=== PATIENT | male | born 1955 | race Caucasian/White ===

== ENCOUNTER 2018-03-06 09:07 | Emergency (ER) | payer SELFPAY ==
[2018-03-06] MEDS ORDERED: ONDANSETRON HCL IV 4 MG/2 ML VIAL IV ONE (09:16)
[2018-03-06] MEDS ORDERED: 0.9 % SODIUM CHLORIDE 1,000 ML BAG IV ONE (09:16)
--- NOTE | 2018-03-06 09:21 | Emergency Department Record ---
History of Present Illness - General Chief complaint: Extremity Problem Stated complaint: LEG WEAKNESS Time Seen by Provider: 03/06/18 09:15 Source: Patient, EMS - History of Present Illness Initial comments: The patient resides at [facility] since last winter sometime. He states and EMS verify that he has had weakness in his legs for about 3-7 days. He is not aware of his medical problems, but his med list includes lithium s well as numerous other medications for bipolar disorder, schizo-affective disorder, hypertension, type 2DM. He denies complaints of fevers, chills, cough, sore throat, back pain, flank pain, abdominal pain, nausea or vomiting. He states his legs are weak so that he needs help walking to and from his room. Staff at bedside report that he always has resting tremors. He states he had a CBC drawn in [place]. Staff member not aware of details, but will call facility to clarify. - Related Data Home Medications Medication Instructions Recorded Confirmed Last Taken Amlodipine Besylate [Norvasc] 5 mg PO DAILY 03/06/18 03/06/18 03/06/18 Aspirin 81 mg PO DAILY 03/06/18 03/06/18 03/06/18 Atorvastatin Calcium [Lipitor] 10 mg PO DAILY 03/06/18 03/06/18 03/05/18 Cholecalciferol (Vitamin D3) 2,000 unit PO DAILY 03/06/18 03/06/18 03/06/18 [Vitamin D3] Clozapine [Clozaril] 300 mg PO QHS 03/06/18 03/06/18 03/05/18 Gabapentin [Neurontin] 300 mg PO TID 03/06/18 03/06/18 03/05/18 Lactulose [Kristalose] 10 gm PO TID 03/06/18 03/06/18 03/06/18 Levothyroxine Sodium [Levoxyl] 100 mcg PO DAILY 03/06/18 03/06/18 03/06/18 [place] Carbonate [[place] 300 mg PO QHS 03/06/18 03/06/18 03/05/18 Carbonate ER] Lorazepam [Ativan] 1 mg PO TID 03/06/18 03/06/18 03/05/18 Melatonin 3 mg PO QHS 03/06/18 03/06/18 03/06/18 Multivitamin [Daily Multiple 1 tab PO DAILY 03/06/18 03/06/18 03/06/18 Vitamin] Ropinirole HCl [Requip] 0.5 mg PO 03/06/18 Unknown Valbenazine Tosylate [Ingrezza] 40 mg PO DAILY 03/06/18 03/06/18 03/05/18 Allergies Allergy/AdvReac Type Severity Reaction Status Date / Time No Known Drug Allergies Allergy Verified 03/06/18 09:13 Review of Systems Reviewed: No additional complaints except as noted below Constitutional: Reports: As per HPI. Denies: Chills, Fever, Malaise, Night sweats, Weakness, Weight change Eyes: Reports: As per HPI. Denies: Eye discharge, Eye pain, Photophobia, Vision change ENT: Reports: As per HPI. Denies: Congestion, Dental pain, Ear pain, Epistaxis , Hearing loss, Throat pain Respiratory: Reports: As per HPI. Denies: Cough, Dyspnea, Hemoptysis, Stridor, Wheezes Cardiovascular: Reports: As per HPI. Denies: Arrhythmia, Chest pain, Dyspnea on exertion, Edema, Murmurs, Orthopnea, Palpitations, Paroxysmal nocturnal dyspnea, Rheumatic Fever, Syncope Endocrine: Reports: As per HPI. Denies: Fatigue, Heat or cold intolerance, Polydipsia, Polyuria Gastrointestinal: Reports: As per HPI. Denies: Abdominal pain, Constipation, Diarrhea, Hematemesis, Hematochezia, Melena, Nausea, Vomiting Genitourinary: Reports: As per HPI. Denies: Dysuria, Frequency, Hematuria, Incontinence, Retention, Testicular pain, Testicular mass, Urgency Musculoskeletal: Reports: As per HPI. Denies: Arthralgia, Back pain, Gout, Joint swelling, Myalgia, Neck pain Skin: Reports: As per HPI. Denies: Bruising, Change in color, Change in hair/ nails, Lesions, Pruritus, Rash Neurological: Reports: As per HPI. Denies: Abnormal gait, Confusion, Headache, Numbness, Paresthesias, Seizure, Tingling, Tremors, Vertigo, Weakness Psychiatric: Reports: As per HPI. Denies: Anxiety, Auditory hallucinations, Depression, Homicidal thoughts, Suicidal thoughts, Visual hallucinations Hematological/Lymphatic: Reports: As per HPI. Denies: Anemia, Blood Clots, Easy bleeding, Easy bruising, Swollen glands Physical Exam - General General Appearance: Alert, Oriented x3, Cooperative, No acute distress, Other ( Patient is poorly dressed, has food particles on his chin and shirt, pants are half way own his buttocks, overall poor hygiene noted. Fine generalized tremor to all extremities, difficulty focusing on questions asked of him (staff reports this is baselilne for him).) - Head Head exam: Atraumatic, Normal inspection - Eye Eye exam: Normal appearance, PERRL Pupils: Normal accommodation - ENT ENT exam: Normal exam, Mucous membranes moist, Normal external ear exam, Normal orophraynx, TM's normal bilaterally Ear exam: Normal external inspection. negative: External canal tenderness Nasal Exam: Normal inspection. negative: Discharge, Sinus tenderness Mouth exam: Normal external inspection, Tongue normal Teeth exam: Normal inspection. negative: Dental caries Throat exam: Normal inspection. negative: Tonsillar erythema, Tonsillar exudate - Neck Neck exam: Normal inspection, Full ROM. negative: Lymphadenopathy, Meningismus , Tenderness - Respiratory Respiratory exam: Normal lung sounds bilaterally. negative: Respiratory distress - Cardiovascular Cardiovascular Exam: Regular rate, Normal rhythm, Normal heart sounds - GI/Abdominal GI/Abdominal exam: Soft, Normal bowel sounds. negative: Guarding, Rebound, Rigid, Tenderness - Rectal Rectal exam: Deferred - exam: Deferred - Extremities Extremities exam: Normal inspection, Full ROM, Normal capillary refill. negative: Calf tenderness, Pedal edema, Tenderness - Back Back exam: Reports: Normal inspection, Full ROM. Denies: CVA tenderness (R), CVA tenderness (L), Muscle spasm, Rash noted, Tenderness - Neurological Neurological exam: Alert, CN II-XII intact, Normal gait, Oriented X3, Reflexes normal, Other (fine tremor to all extremities (not new per staff member from home)). negative: Motor sensory deficit - Psychiatric Psychiatric exam: Normal affect, Normal mood - Skin Skin exam: Dry, Intact, Normal color, Warm. negative: Diaphoretic, Rash Course - Reevaluation(s) Reevaluation #1: 03/06/18 10:36 Patient is a difficulty blood draw. Unable to establish IV. Patient is not vomiting, will orally hydrate. Reevaluation #2: Patient drank 4 large glasses of water, & ate 2 pieces of peanut butter toast. He got up to ambulate in his room and felt good and back to normal. He has continuous fine tremors and tardative dyskinesia as a baseline. Will discharge back to his facility with caregiver. 03/06/18 11:03 Medical Decision Making - Management Options MDM Management: No Additional Work-up Planned - Data Complexity MDM Data: Labs Ordered and/or Reviewed, Decision to Obtain Old Record ( Discharge summary from 01-29 to 02-08-18 reviewed. He required 3 ECT therapies and several doses of Zyprexa with good response. ) - Lab Data Result diagrams: 03/06/18 09:55 03/06/18 09:55 Disposition Disposition: Discharge Clinical Impression: Dehydration Disposition: Home, Self-Care Condition: (2) Stable Instructions: Dehydration (ED) Additional Instructions: Increase fluid intake. Continue present medications. Follow up with PCP as needed through your Facility where you reside as before. Forms: Patient Portal Access Quality - Quality Measures Quality Measures: N/A - Blood Pressure Screening Does Patient Have Any of the Following: No Blood Pressure Classification: Pre-Hypertensive BP Reading Systolic Measurement: 145 Diastolic Measurement: 85 Screening for High Blood Pressure: < Pre-Hypertensive BP, F/U Documented > [ G8950] Pre-Hypertensive Follow-up Interventions: Follow-up with rescreen every year.
[2018-03-06 10:00] LABS: BASO % 0.5 % (0-6); EOS % 2.2 % (0-6); GRAN % 78.5 % (47-80); HEMATOCRIT 40.7 % (42.0-52.0); HEMOGLOBIN 12.9 gm/dl (14.0-18.0); MEAN CELL VOLUME 89.1 fl (81-97); MEAN CORPUSCULAR HEMOGLOBIN 28.2 pg (27-33); MEAN CORPUSCULAR HGB CONC 31.7 g/dl (32-36); MEAN PLATELET VOLUME 10.1 fl (7.4-10.4); MONO % 4.8 % (0-9); PLATELET COUNT 224 K/uL (130-400); RED BLOOD COUNT 4.57 M/uL (4.40-5.70); RED CELL DISTRIBUTION WIDTH 14.6 % (11.5-14.5); WHITE BLOOD COUNT W/O DIFF 9.3 K/uL (4.2-12.2)
[2018-03-06 10:07] LABS: BLOOD UREA NITROGEN 11 mg/dL (8-23); CREATININE 0.8 mg/dL (0.7-1.2); EST GLOMERULAR FILTRATION RATE > 60 mL/min; TOTAL PROTEIN 7.1 g/dL (6.6-8.7)
[2018-03-06 10:09] LABS: GLUCOSE,RANDOM 102 mg/dL (74-109)
[2018-03-06 10:12] LABS: ALB/GLOB RATIO 1.1 (1.1-1.8); ALBUMIN 3.7 g/dL (4.0-5.0); ALKALINE PHOSPHATASE 158 U/L (40-129); ALT/SGPT 15 U/L (<41); AST/SGOT 15 U/L (10.0-50.0)
[2018-03-06 10:13] LABS: URINE APPEARANCE CLEAR; URINE BILIRUBIN NEGATIVE (NEGATIVE); URINE BLOOD NEGATIVE (NEGATIVE); URINE COLOR YELLOW; URINE GLUCOSE (UA) NEGATIVE (NEGATIVE); URINE KETONE NEGATIVE (NEGATIVE); URINE LEUKOCYTE ESTERASE NEGATIVE (NEGATIVE); URINE NITRITE NEGATIVE (NEGATIVE); URINE PROTEIN NEGATIVE (NEGATIVE); URINE UROBILINOGEN 0.2 E.U./dL (0.20 - 1.00)
== END 2018-03-06 11:30 | disposition home or self-care (01) ==
LOC: ER 09:07
DX: E86.0 Dehydration (principal); R53.1 Weakness; F20.9 Schizophrenia, unspecified; F31.9 Bipolar disorder, unspecified; I10 Essential (primary) hypertension; E11.9 Type 2 diabetes mellitus without complications
CPT/HCPCS: 80053; 81003; 85025; 99283

== ENCOUNTER 2018-03-12 11:10 | Emergency (ER) | payer SELFPAY ==
--- NOTE | 2018-03-12 12:25 | Emergency Department Record ---
History of Present Illness - General Chief complaint: Weakness Stated complaint: TROUBLE WALKING Time Seen by Provider: 03/12/18 12:01 Source: Patient Mode of Arrival: Ambulatory - History of Present Illness Initial comments: Patient has increasing tremors and weakness of leg adn his lithium level is high and his lithium dose was increased about one month ago. No dispnea or chest pain or abdominal pain and he walked into ED with his caregiver from [facility]. Onset/Timin -: Week(s) Severity: Mild Severity scale (1-10): 2 Associated Symptoms: Denies other symptoms - [place] Coma Scale Eye Response: (4) Open spontaneously Motor Response: (6) Obeys commands Verbal Response: (5) Oriented [place] Total: 15 - Related Data Allergies Allergy/AdvReac Type Severity Reaction Status Date / Time No Known Drug Allergies Allergy Verified 03/12/18 11:42 Travel Screening - Travel/Exposure Within Last 30 Days Have you traveled within the last 30 days?: No - Travel/Exposure Within Last Year Have you traveled outside the [place] in the last year?: No - Additonal Travel Details Have you been exposed to anyone with a communicable illness?: No - Travel Symptoms Symptom Screening: None Review of Systems Reviewed: No additional complaints except as noted below Constitutional: Reports: As per HPI. Denies: Chills, Fever, Malaise, Night sweats, Weakness, Weight change Eyes: Reports: As per HPI. Denies: Eye discharge, Eye pain, Photophobia, Vision change ENT: Reports: As per HPI. Denies: Congestion, Dental pain, Ear pain, Epistaxis , Hearing loss, Throat pain Respiratory: Reports: As per HPI. Denies: Cough, Dyspnea, Hemoptysis, Stridor, Wheezes Cardiovascular: Reports: As per HPI. Denies: Arrhythmia, Chest pain, Dyspnea on exertion, Edema, Murmurs, Orthopnea, Palpitations, Paroxysmal nocturnal dyspnea, Rheumatic Fever, Syncope Endocrine: Reports: As per HPI. Denies: Fatigue, Heat or cold intolerance, Polydipsia, Polyuria Gastrointestinal: Reports: As per HPI. Denies: Abdominal pain, Constipation, Diarrhea, Hematemesis, Hematochezia, Melena, Nausea, Vomiting Genitourinary: Reports: As per HPI. Denies: Dysuria, Frequency, Hematuria, Incontinence, Retention, Testicular pain, Testicular mass, Urgency Musculoskeletal: Reports: As per HPI. Denies: Arthralgia, Back pain, Gout, Joint swelling, Myalgia, Neck pain Skin: Reports: As per HPI. Denies: Bruising, Change in color, Change in hair/ nails, Lesions, Pruritus, Rash Neurological: Reports: As per HPI, Tremors. Denies: Abnormal gait, Confusion, Headache, Numbness, Paresthesias, Seizure, Tingling, Vertigo, Weakness Psychiatric: Reports: As per HPI. Denies: Anxiety, Auditory hallucinations, Depression, Homicidal thoughts, Suicidal thoughts, Visual hallucinations Hematological/Lymphatic: Reports: As per HPI. Denies: Anemia, Blood Clots, Easy bleeding, Easy bruising, Swollen glands Past Medical History - SOCIAL HISTORY Smoking Status: Current every day smoker Alcohol Use: None Drug Use: None - RESPIRATORY Hx Respiratory Disorders: No - CARDIOVASCULAR Hx Cardio Disorders: Yes Comment:: HIGH CHOLESTEROL - NEURO Hx Neuro Disorders: Yes Comment:: Tremors related to medications - GI Hx GI Disorders: No - Hx Genitourinary Disorders: No - ENDOCRINE Hx Endocrine Disorders: Yes Hx Diabetes: Yes (used to be) Hx Thyroid Disease: Yes - MUSCULOSKELETAL Hx Musculoskeletal Disorders: No - PSYCH Hx Psych Problems: Yes Hx Anxiety: Yes Hx Depression: Yes Comment:: bipolar - HEMATOLOGY/ONCOLOGY Hx Hematology/Oncology Disorders: No Family Medical History Any Significant Family History?: Yes Physical Exam - General General Appearance: Alert, Oriented x3, Cooperative, No acute distress - Head Head exam: Normal inspection - Eye Eye exam: Normal appearance, PERRL Pupils: Normal accommodation - ENT ENT exam: Normal exam, Mucous membranes moist, Normal external ear exam, Normal orophraynx, TM's normal bilaterally Ear exam: Normal external inspection. negative: External canal tenderness Nasal Exam: Normal inspection. negative: Discharge, Sinus tenderness Mouth exam: Normal external inspection, Tongue normal Teeth exam: Normal inspection. negative: Dental caries Throat exam: Normal inspection. negative: Tonsillar erythema, Tonsillar exudate - Neck Neck exam: Normal inspection, Full ROM. negative: Tenderness - Respiratory Respiratory exam: Normal lung sounds bilaterally. negative: Respiratory distress - Cardiovascular Cardiovascular Exam: Regular rate, Normal rhythm, Normal heart sounds - GI/Abdominal GI/Abdominal exam: Soft, Normal bowel sounds. negative: Tenderness - Rectal Rectal exam: Deferred - exam: Deferred - Extremities Extremities exam: Normal inspection, Full ROM, Normal capillary refill. negative: Tenderness - Back Back exam: Reports: Normal inspection, Full ROM. Denies: Muscle spasm, Rash noted, Tenderness - Neurological Neurological exam: Alert, Normal gait, Oriented X3, Reflexes normal - Psychiatric Psychiatric exam: Normal affect, Normal mood - Skin Skin exam: Dry, Intact, Normal color, Warm Course Vital Signs 03/12/18 11:23 Temperature 97.8 F Pulse Rate 92 H Respiratory 18 Rate Blood Pressure 150/93 Pulse Ox 96 - Reevaluation(s) Reevaluation #1: reviewed labs from his last visit her and lithium was drawn and it came back 1.2 which is high and it is causing him more tremors and leg weakness . Will have him not take lithium today and than only take it every other day till he sees his psychiatrist to have his lithium medication lowered. 03/12/18 12:22 Disposition Clinical Impression: [place] toxicity Qualifiers: Encounter type: initial encounter Injury intent: accidental or unintentional Qualified Code(s): T56.891A - Toxic effect of other metals, accidental ( unintentional), initial encounter Disposition: Home, Self-Care Condition: (1) Good Instructions: [place] Toxicity (ED) Additional Instructions: No lithium today and than only take it every other day till he sees his psychiatrist to adjust his medication follow up with kathy Mccann next week Forms: Patient Portal Access Time of Disposition: 12:26 Quality - Quality Measures Quality Measures: N/A - Blood Pressure Screening Does Patient Have Any of the Following: No Blood Pressure Classification: Hypertensive Reading Systolic Measurement: 150 Diastolic Measurement: 93 Screening for High Blood Pressure: < First Hypertensive BP, F/U Documented > [ G8950] First Hypertensive Follow-up Interventions: Referral to alternative/primary care provider.
== END 2018-03-12 12:48 | disposition home or self-care (01) ==
LOC: ER 11:10
DX: G25.1 Drug-induced tremor (principal); T43.595A Adverse effect of other antipsychotics and neuroleptics, initial encounter
CPT/HCPCS: 99282

== ENCOUNTER 2018-04-24 12:54 | Emergency (ER) | payer MEDICARE, MEDICAID ==
[2018-04-24] MEDS ORDERED: 0.9 % SODIUM CHLORIDE 1000ML 1,000 ML IV ONE (13:23)
--- NOTE | 2018-04-24 13:32 | Emergency Department Record ---
History of Present Illness - General Chief Complaint: Dizziness Stated Complaint: DIZZY Time Seen by Provider: 04/24/18 13:21 Source: Patient Mode of Arrival: EMS Limitations: No limitations - History of Present Illness Initial Comments: 62 yo male presents by EMS. He has a brief episode of feeling dizzy after eating a turkey sandwich. He states the symptoms have resolved. He was not feeling sick or symptomatic earlier in the day. No vision changes, no vomiting , no diarrhea, no tremors or shaking. No pain. No sweating. No difficulty walking. He ambulated at the home to the EMS cot and from the cot to the ED bed without limitation. He was upset that his usp did not have his clozapine prescription ready for him. MD Complaint: Dizziness Onset/Timin -: Minutes(s) Timing: Sudden onset History of Same: No History of Trauma: No Severity: Mild Improves With: Nothing Worsens With: Nothing Associated Symptoms: Denies other symptoms - [place] Coma Scale Eye Response: (4) Open spontaneously Motor Response: (6) Obeys commands Verbal Response: (5) Oriented [place] Total: 15 - Related Data Allergies Allergy/AdvReac Type Severity Reaction Status Date / Time No Known Drug Allergies Allergy Verified 04/24/18 12:58 Travel Screening - Travel/Exposure Within Last 30 Days Have you traveled within the last 30 days?: No Review of Systems Constitutional: Denies: Chills, Fever, Malaise, Weakness Eyes: Denies: Eye discharge, Eye pain, Photophobia, Vision change ENT: Denies: Congestion, Throat pain Respiratory: Denies: Cough, Dyspnea, Hemoptysis, Stridor, Wheezes Cardiovascular: Denies: Chest pain, Edema, Palpitations, Syncope Endocrine: Denies: Fatigue, Polydipsia, Polyuria Gastrointestinal: Denies: Abdominal pain, Diarrhea, Nausea, Vomiting Genitourinary: Denies: Dysuria, Frequency, Hematuria Musculoskeletal: Denies: Arthralgia, Back pain, Myalgia Skin: Denies: Bruising, Change in color, Rash Neurological: Reports: Vertigo. Denies: Abnormal gait, Confusion, Headache, Numbness, Paresthesias, Seizure, Tingling, Tremors, Weakness Psychiatric: Denies: Anxiety Hematological/Lymphatic: Denies: Easy bleeding, Easy bruising, Swollen glands Past Medical History - SOCIAL HISTORY Smoking Status: Current every day smoker Alcohol Use: None Drug Use: None - RESPIRATORY Hx Respiratory Disorders: No - CARDIOVASCULAR Hx Cardio Disorders: Yes Comment:: HIGH CHOLESTEROL - NEURO Hx Neuro Disorders: Yes Comment:: Tremors related to medications - GI Hx GI Disorders: No - Hx Genitourinary Disorders: No - ENDOCRINE Hx Endocrine Disorders: Yes Hx Diabetes: Yes (used to be) Hx Thyroid Disease: Yes - MUSCULOSKELETAL Hx Musculoskeletal Disorders: No - PSYCH Hx Psych Problems: Yes Hx Anxiety: Yes Hx Depression: Yes Comment:: bipolar - HEMATOLOGY/ONCOLOGY Hx Hematology/Oncology Disorders: No Family Medical History Any Significant Family History?: No Physical Exam - General General Appearance: Alert, Oriented x3, Cooperative, No acute distress Limitations: No limitations - Head Head exam: Atraumatic, Normal inspection - Eye Eye exam: Normal appearance, PERRL, EOMI. negative: Conjunctival injection, Nystagmus, Periorbital swelling, Scleral icterus - ENT ENT exam: Normal exam, Mucous membranes moist Ear exam: Normal external inspection Nasal Exam: Normal inspection Mouth exam: Normal external inspection - Neck Neck exam: Normal inspection, Full ROM. negative: Tenderness - Respiratory Respiratory exam: Normal lung sounds bilaterally. negative: Respiratory distress - Cardiovascular Cardiovascular Exam: Regular rate, Normal rhythm, Normal heart sounds - GI/Abdominal GI/Abdominal exam: Soft. negative: Tenderness - Rectal Rectal exam: Deferred - exam: Deferred - Extremities Extremities exam: Normal inspection - Back Back exam: Reports: Normal inspection. Denies: CVA tenderness (R), CVA tenderness (L) - Neurological Neurological exam: Alert, CN II-XII intact, Normal gait, Oriented X3, Reflexes normal. negative: Abnormal gait, Altered, Motor sensory deficit - Psychiatric Psychiatric exam: Normal affect, Normal mood. negative: Agitated, Anxious - Skin Skin exam: Dry, Intact, Normal color, Warm Course Vital Signs 04/24/18 12:55 Temperature 97.9 F Pulse Rate 101 H Respiratory 18 Rate Blood Pressure 162/91 Pulse Ox 95 - Reevaluation(s) Reevaluation #1: 04/24/18 13:31 Li level is a send out The patient is asymptomatic not showing clinical signs of toxicity 04/24/18 13:42 EKG 13:32 NSR rate 91, intervals QTc 489, axis L, ST no acute changes, poor R wave.. 04/24/18 14:09 Delays in labs due to down analyzer. Samples sent to [facility] 04/24/18 14:20 HCT was read as negative 04/24/18 14:30 The CBC and UA were reviewed. No acute changes. The patient was updated. He remains asymptomatic. 04/24/18 14:49 The patient is not willing to stay longer. He was informed his labs will be reported in 1-2 hours. He was informed he may be asked to return if any abnormal 04/24/18 17:04 No acute changes on the CMP 04/24/18 18:35 [place] was 0.5 Medical Decision Making - Lab Data Result diagrams: 04/24/18 13:30 04/24/18 13:30 Disposition Disposition: Discharge Clinical Impression: Dizzinesses Disposition: Home, Self-Care Condition: (1) Good Instructions: Dizziness (ED) Additional Instructions: Rest and stay well hydrated Return or be seen if your dizziness returns Your [place] level will be available in 1-2 days. Return sooner if any symptoms or concerns Forms: Patient Portal Access Time of Disposition: 14:50 Quality - Quality Measures Quality Measures: N/A - Blood Pressure Screening Does Patient Have Any of the Following: Active Dx of HTN Blood Pressure Classification: Hypertensive Reading Systolic Measurement: 162 Diastolic Measurement: 91 Screening for High Blood Pressure: Patient Exclusion, Hx of HTN [G9744]
[2018-04-24 13:47] LABS: BASO % 0.7 % (0-6); EOS % 2.5 % (0-6); GRAN % 74.9 % (47-80); HEMATOCRIT 38.9 % (42.0-52.0); HEMOGLOBIN 12.2 gm/dl (14.0-18.0); LYMPH % 16.3 % (16-45); MEAN CELL VOLUME 89.8 fl (81-97); MEAN CORPUSCULAR HGB CONC 31.4 g/dl (32-36); MONO % 5.6 % (0-9); PLATELET COUNT 200 K/uL (130-400); RED BLOOD COUNT 4.33 M/uL (4.40-5.70); RED CELL DISTRIBUTION WIDTH 15.9 % (11.5-14.5); WHITE BLOOD COUNT W/O DIFF 7.3 K/uL (4.2-12.2)
[2018-04-24 13:48] LABS: MEAN CORPUSCULAR HEMOGLOBIN 28.1 pg (27-33)
[2018-04-24 14:15] LABS: URINE APPEARANCE CLEAR; URINE BILIRUBIN NEGATIVE (NEGATIVE); URINE BLOOD NEGATIVE (NEGATIVE); URINE COLOR YELLOW; URINE GLUCOSE (UA) NEGATIVE (NEGATIVE); URINE KETONE NEGATIVE (NEGATIVE); URINE LEUKOCYTE ESTERASE NEGATIVE (NEGATIVE); URINE NITRITE NEGATIVE (NEGATIVE); URINE PROTEIN NEGATIVE (NEGATIVE); URINE UROBILINOGEN 0.2 E.U./dL (0.20 - 1.00)
[2018-04-24 16:48] LABS: BLOOD UREA NITROGEN 16 mg/dL (8-23); CREATININE 0.8 mg/dL (0.7-1.2); EST GLOMERULAR FILTRATION RATE > 60 mL/min
[2018-04-24 16:50] LABS: TOTAL PROTEIN 7.1 g/dL (6.6-8.7)
[2018-04-24 16:51] LABS: GLUCOSE,RANDOM 137 mg/dL (74-109)
[2018-04-24 16:54] LABS: ALT/SGPT 23 U/L (<41); AST/SGOT 24 U/L (10.0-50.0)
[2018-04-24 16:55] LABS: ALB/GLOB RATIO 1.2 (1.1-1.8); ALBUMIN 3.9 g/dL (4.0-5.0); ALKALINE PHOSPHATASE 124 U/L (55-149)
--- NOTE | 2018-04-25 08:13 | CT SCAN REPORT ---
EXAM: CT OF THE BRAIN WITHOUT CONTRAST HISTORY: SUDDEN ONSET OF VERTIGO. TECHNIQUE: Sequential axial images were obtained from the foramen magnum to the vertex without contrast administration. FINDINGS: The brain volume is normal. No large territorial infarct, hemorrhage , mass effect, or midline shift. The orbits, paranasal sinuses, and mastoid air cells are normal. IMPRESSION: NO ACUTE INTRACRANIAL ABNORMALITY IS APPRECIATED. JOB NUMBER: [id number] MTDD
== END 2018-04-24 15:06 | disposition home or self-care (01) ==
LOC: ER 12:54
DX: R42 Dizziness and giddiness (principal); F17.210 Nicotine dependence, cigarettes, uncomplicated
CPT/HCPCS: 70450; 80053; 81003; 85025; 93005; 93010; 99284